=== PATIENT | female | born 1950 | race Caucasian/White ===

== ENCOUNTER 2016-08-16 17:39 | Emergency (ER) | payer MEDICARE ==
[2017-01-07] MEDS ORDERED: XANAX0.5 MG PO (09:42)
[2017-01-07] MEDS ORDERED: ALTOPREV40 MG PO (09:42)
[2017-01-07] MEDS ORDERED: PRILOSEC20 MG PO (09:43)
[2017-01-07] MEDS ORDERED: SYNTHROID88 MCG PO (09:43)
[2017-01-07] MEDS ORDERED: ADALAT CC30 MG PO (09:44)
[2017-01-07] MEDS ORDERED: CORTEF20 MG PO (09:46)
[2017-01-07] MEDS ORDERED: DUONEB 2.5-0.5M1 AMP INH (09:47)
[2017-01-07] MEDS ORDERED: MUCINEX OTC (09:48)
[2017-01-07] MEDS ORDERED: AZITHROMYCIN250 MG PO (09:48)
== END 2016-08-16 18:00 | disposition left against medical advice (07) ==
LOC: FER 17:39
DX: E87.1 Hypo-osmolality and hyponatremia (principal); Z53.8 Procedure and treatment not carried out for other reasons

== ENCOUNTER 2021-08-22 09:18 | Emergency (ER) | payer MEDICARE ==
[~2021-08-22 09:18] MED LIST: ADALAT CC30 MG PO; ALPRAZOLAM 1MG T1 MG PO; ALTOPREV40 MG PO; AZITHROMYCIN250 MG PO; CORTEF5 MG PO; DUONEB 2.5-0.5M1 AMP INH; HYDROCORTISONE20 MG PO; LEVOTHYROXINE88 MCG PO; LOVASTATIN40 MG PO; MUCINEX OTC; OMEPRAZOLE 20MG20 MG PO; PRILOSEC20 MG PO; PROAIR HFA8.5 GM PO; SYNTHROID88 MCG PO; XANAX0.5 MG PO
[2021-08-22 11:00] LABS: BASOPHIL 0.4 % (0-2); EOSINOPHIL 8.4 % (0-7); HCT 39.7 % (37.0-47.0); LYMPHOCYTE 28.2 % (15-48); MCH 25.3 pg (25.0-31.0); MCHC 30.2 g/dL (32.0-36.0); MCV 83.8 fL (78.0-100.0); MONOCYTE 9.9 % (0-12); MPV 10.6 fL (6.0-9.5); NEUTROPHIL 52.9 % (41-80); NRBC 0; PLT 316 K/uL (150-400); RBC 4.74 M/uL (4.20-5.40); RDW 16.3 % (11.5-14.0); WBC 12.3 K/uL (4.0-10.5)
[2021-08-22 11:19] LABS: BUN/CREAT RATIO (CALC) 18.2 RATIO; CREATININE 1.1 mg/dL (0.51-0.95); POTASSIUM 3.6 mmol/L (3.5-5.1)
[2021-08-22] MEDS ORDERED: NORCO 5-325 TA1 EACH PO (13:49)
== END 2021-08-22 15:08 | disposition home or self-care (01) ==
LOC: FER 09:18
PROVIDERS: Internal Medicine
DX: Q18.1 Preauricular sinus and cyst (principal); R68.84 Jaw pain; I10 Essential (primary) hypertension; Z88.5 Allergy status to narcotic agent
CPT/HCPCS: 36415; 70450; 70486; 70490; 80048; 84145; 85025; 86140; J1100; J1170; J3490

== ENCOUNTER 2021-09-18 14:19 | Emergency (ER) | payer MEDICARE ==
[~2021-09-18 14:19] MED LIST changes: +NORCO 5-325 TA1 EACH PO
[2021-09-18 15:29] LABS: BASOPHIL 0.5 % (0-2); HCT 42.1 % (37.0-47.0); HGB 12.6 g/dl (12.5-16.0); LYMPHOCYTE 23.9 % (15-48); MCH 25.5 pg (25.0-31.0); MCHC 29.9 g/dL (32.0-36.0); MCV 85.1 fL (78.0-100.0); MONOCYTE 7.6 % (0-12); MPV 11.1 fL (6.0-9.5); NEUTROPHIL 64.7 % (41-80); NRBC 0; PLT 289 K/uL (150-400); RBC 4.95 M/uL (4.20-5.40); WBC 10.2 K/uL (4.0-10.5)
[2021-09-18 15:54] LABS: BILIRUBIN - TOTAL 0.2 mg/dL (0.2-1.0); BUN/CREAT RATIO (CALC) 18.3 RATIO; CREATININE 1.04 mg/dL (0.51-0.95); GLOBULIN (CALCULATION) 3.7 g/dL; POTASSIUM 4.1 mmol/L (3.5-5.1); TOTAL PROTEIN 6.7 g/dL (6.4-8.2)
[2021-09-18 18:28] LABS: INR 0.98 (0.9-1.2); PROTHROMBIN TIME 12.4 SECONDS (11.8-13.4); PTT 32.7 SECONDS (24.4-34.7)
== END 2021-09-18 22:50 | disposition other institution (70) ==
LOC: FER 14:19
PROVIDERS: Emergency Medicine
DX: I21.4 Non-ST elevation (NSTEMI) myocardial infarction (principal); E11.9 Type 2 diabetes mellitus without complications; I25.2 Old myocardial infarction; Z88.8 Allergy status to other drugs, medicaments and biological substances
CPT/HCPCS: 36415; 71046; 80053; 84443; 84484; 85025; 85610; 85730; 93005; J1644; J2270

== ENCOUNTER 2022-01-06 10:18 | Emergency (ER) | payer MEDICARE ==
[~2022-01-06 10:18] MED LIST changes: +3IN1 COMMODE; +ASPIRIN EC81 MG PO; +CORTEF10 MG PO; +COZAAR50 MG PO; +HUMALOG100 UNIT/3 SC; +LANTUS **100 UNITS/ SC; +LIPITOR40 MG PO; +NITROQUIK SL0.4 MG SL; +NORVASC5 MG PO; +PAXLOVID 150-11 EACH PO; +TOPROL XL 25MG25 MG PO; +VENTOLIN HFA IN18 GM INH
[2022-01-06 11:45] LABS: BILIRUBIN NEGATIVE (NEGATIVE); BLOOD NEGATIVE Ery/uL (NEGATIVE); CLARITY CLEAR (CLEAR); COLOR YELLOW (YELLOW); GLUCOSE (U) NORMAL (NORMAL); LEUKOCYTES NEGATIVE Leu/uL (NEGATIVE); NITRITE NEGATIVE (NEGATIVE); PROTEIN 2+ mg/dL (NEGATIVE); SPECIFIC GRAVITY 1.015 (1.001-1.030); UROBILINOGEN 0.2 mg/dL (0.2-1.0); pH 6.5 (5.0-9.0)
[2022-01-06 11:53] LABS: BASOPHIL 0.6 % (0-2); HCT 38.9 % (37.0-47.0); HGB 11.7 g/dl (12.5-16.0); MCH 26.2 pg (25.0-31.0); MCHC 30.1 g/dL (32.0-36.0); MONOCYTE 9.7 % (0-12); MPV 10.7 fL (6.0-9.5); NEUTROPHIL 37.8 % (41-80); NRBC 0; PLT 234 K/uL (150-400); RBC 4.47 M/uL (4.20-5.40); RDW 16.3 % (11.5-14.0); WBC 9.4 K/uL (4.0-10.5)
[2022-01-06 11:54] LABS: URINARY RBC RARE; URINARY WBC RARE
[2022-01-06 12:15] LABS: BUN/CREAT RATIO (CALC) 21.6 RATIO; CREATININE 1.02 mg/dL (0.51-0.95); POTASSIUM 4.1 mmol/L (3.5-5.1)
== END 2022-01-06 13:13 | disposition home or self-care (01) ==
LOC: FER 10:18
PROVIDERS: Emergency Medicine
DX: I10 Essential (primary) hypertension (principal); E11.9 Type 2 diabetes mellitus without complications; Z88.8 Allergy status to other drugs, medicaments and biological substances; Z79.4 Long term (current) use of insulin; Z86.16 Personal history of COVID-19; Z79.899 Other long term (current) drug therapy
CPT/HCPCS: 36415; 71046; 80048; 81001; 82553; 84484; 85025; 93005